=== PATIENT | male | born 1990 | race Caucasian/White ===

== ENCOUNTER 2017-08-18 14:24 | Day surgery (SDC) | payer OTHER ==
[2017-08-18] MEDS ORDERED: MIDAZOLAM 1 MG/ML 2 ML INJ (16:26)
[2017-08-18] MEDS ORDERED: ROPIVACAINE 0.5 % 30 ML VIAL (16:27)
[2017-08-18] MEDS ORDERED: BUPIVACAINE 0.5% (SDV) 30 ML INJ (16:54)
[2017-08-18] MEDS ORDERED: BACITRACIN/POLYMYXIN 28.35 GM OINT TOP (16:54)
[2017-08-18] MEDS ORDERED: ROCURONIUM 50 MG INJ (16:56)
[2017-08-18] MEDS ORDERED: CEFAZOLIN 1 GM INJ (16:56)
[2017-08-18] MEDS ORDERED: SUGAMMADEX SODIUM 200 MG/2 ML VIAL IV (16:56)
[2017-08-18] MEDS ORDERED: LIDOCAINE 100 MG SYRINGE (16:56)
[2017-08-18] MEDS ORDERED: PROPOFOL 20 ML (16:56)
[2017-08-18] MEDS ORDERED: SUCCINYLCHOLINE CHLORIDE 100 MG/5 ML SYG IV (16:56)
[2017-08-18] MEDS: POLYMYXIN/BACITRACIN 1L IRRIG IRR (17:01)
[2017-08-18] MEDS ORDERED: OXYCODONE/ACETAMINOPHEN (5/325) TAB PO ×2 (19:00→20:00)
[2017-08-18] MEDS ORDERED: MEPERIDINE 25 MG INJ IV (19:00)
[2017-08-18] MEDS ORDERED: METOCLOPRAMIDE 10 MG INJ IV (19:00)
[2017-08-18] MEDS ORDERED: HYDROmorphONE (0.2 MG/ML) 10ML SYG IV ×3 (19:00)
[2017-08-18] MEDS ORDERED: DIPHENHYDRAMINE 50 MG INJ IV (19:00)
[2017-08-18] MEDS ORDERED: ONDANSETRON 4 MG INJ IV (19:00)
[2017-08-18] MEDS ORDERED: ALBUTEROL 0.083% (NEB) 2.5 MG/3 ML AMP HHN (19:00)
[2017-08-18] MEDS ORDERED: FENTAnyl 50 MCG/ML VIAL IV ×2 (19:00)
== END 2017-08-18 20:36 | disposition home or self-care (01) ==
LOC: SDS 14:24
DX: S63.044D Dislocation of carpometacarpal joint of right thumb, subsequent encounter (principal); X58.XXXD Exposure to other specified factors, subsequent encounter; M25.341 Other instability, right hand
CPT/HCPCS: 26542; 73140